=== PATIENT | male | born 1960 | race Caucasian/White ===

== ENCOUNTER 2023-08-19 14:44 | Outpatient (CLI) | payer MEDICARE, MEDICAID, SELFPAY ==
--- NOTE | 2023-08-19 14:56 | CT_ITS ---
WS: [id number] CT HEAD NONCONTRAST HISTORY: DISORIENTATION/WEAKNESS/OTHER FATIGUE TECHNIQUE: Contiguous axial imaging performed through the brain in 2.5 mm imaging. Bone and soft tiss ue windows. Sagittal and coronal reformats reviewed. All CT scans at [facility] use at least one of these dose optimization techniques: automated exposure control; mA and/or kV adjustment per pa tient size (includes targeted exams where dose is matched to clinical indication); or iterative recon struction. DLP: 948.68 mGy.cm COMPARISON: None available. No acute intracranial hemorrhage, midline shift or mass effect. Mild atrophy. 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 Ventricles: Normal size with no hydrocephalus. No intra displacement cerebellar tonsils. Clivus and pituitary gland are negative. Paranasal sinuses: Mucoperiosteal thickening in the ethmoid sinuses. Near complete opacification of t he frontal sinuses extending through the frontoethmoid recesses. Mastoid air cells: Well pneumatized. Calvarium and scalp: Skull is intact with no soft tissue edema or swelling. CT/CT head wo con* [id number] IMPRESSION: 1. No acute intracranial hemorrhage or edema. 2. Bilateral prior infarcts in the diaz radiata.
== END 2023-08-19 14:45 | disposition home or self-care (01) ==
PROVIDERS: PCP Nurse Practitioner Family; Visit Provider Nurse Practitioner Family
DX: R41.0 Disorientation, unspecified (principal); R53.1 Weakness; R53.83 Other fatigue; Z86.73 Personal history of transient ischemic attack (TIA), and cerebral infarction without residual deficits; J34.89 Other specified disorders of nose and nasal sinuses
CPT/HCPCS: 70450

== ENCOUNTER 2024-11-26 12:15 | Emergency (ER) | payer MEDICARE, MEDICAID, SELFPAY ==
--- NOTE | 2024-11-26 12:17 | XRR_ITS ---
PROCEDURE INFORMATION: Exam: XR Chest Exam date and time: 11/26/2024 12:46 PM Age: 64 years old Clinical indication: Other: AMS; Additional info: Confusion TECHNIQUE: Imaging protocol: Radiologic exam of the chest. Views: 1 view. COMPARISON: No relevant prior studies available. FINDINGS: Lungs: Unremarkable. No consolidation. Pleural spaces: Unremarkable. No pleural effusion. No pneumothorax. Heart/Mediastinum: Unremarkable. No cardiomegaly. Bones/joints: Unremarkable. XR/XR chest 1V portable [id number] IMPRESSION: No acute findings.
--- NOTE | 2024-11-26 12:18 | W.ED.GENADLT ---
HPI - General Adult General: Chief complaint: Altered Mental Status Stated complaint: AMS Time Seen by Provider: 11/26/24 12:17 Source: patient and EMS Mode of arrival: EMS Limitations: altered mental status History of Present Illness: 64-year-old male has a history of dementia he is here with EMS as patient has been wandering off and was found by police who called EMS who brought him here. Patient here is able to tell me name where he lives but is confused to the year he denies any pain or fever or recent illness. He is ambulatory. Associated symptoms: Reports confusion Related Data Home Medications ?Medication ?Instructions ?Recorded ?Confirmed baclofen 20 mg tablet 20 mg PO TID 11/26/24 11/26/24 cetirizine 10 mg tablet 10 mg PO DAILY PRN seasonal 11/26/24 11/26/24 allergies dulaglutide 3 mg/0.5 mL 3 mg SUBCUT Q7D 11/26/24 11/26/24 subcutaneous pen injector (Trulicity) insulin glargine 100 unit/mL (3 See Rx Instructions .Route .COMPLEX 11/26/24 11/26/24 mL) subcutaneous pen (Lantus Solostar U-100 Insulin) naproxen 500 mg tablet 500 mg PO BID 11/26/24 11/26/24 quetiapine 25 mg tablet 25 mg PO DAILY 11/26/24 11/26/24 simvastatin 20 mg tablet 20 mg PO QPM 11/26/24 11/26/24 Allergies Allergy/AdvReac Type Severity Reaction Status Date / Time No Known Allergies Allergy Verified 11/26/24 12:25 Review of Systems Neuro: Reports: confusion Physical Exam Const: COMMON NORMALS: no acute distress and healthy appearing HENMT: COMMON NORMALS: normocephalic and atraumatic HEAD & SCALP: normocephalic and atraumatic Eye: COMMON NORMALS: Equal, round and reactive pupils present and EOMs intact bilaterally PUPIL: Yes Equal, round and reactive pupils present Neck/C-Spine: COMMON NORMALS: full ROM and supple Chest: COMMONS NORMALS: normal inspection of the chest and normal palpation of entire chest wall Resp: COMMON NORMALS: normal respiratory effort, No retractions, No use of accessory muscles and clear to auscultation bilaterally AUSCULTATION: clear to auscultation bilaterally Cardio: COMMON NORMALS: regular rate, regular rhythm and No murmurs present (Cardio) RATE: regular rate RHYTHM: regular rhythm GI: COMMON NORMALS: Normal to inspection, nondistended, normoactive bowel sounds present, Soft to palpation, non-tender and no masses PALPATION: Yes Soft to palpation Extremity: COMMON NORMALS: normal to inspection and full ROM Neuro: COMMON NORMALS: moves all extremities and no focal motor deficits SPEECH: speech normal GAIT: Yes Normal gait present MOTOR EXAM: 5/5 motor strength present throughout Psych: COMMON NORMALS: mental status grossly normal, Normal thought process present and cooperative THOUGHT PROCESS: Normal thought process present Skin: COMMON NORMALS: no rashes or lesions noted and no wounds GENERAL SKIN EXAM: no rashes or lesions noted Course Vital Signs: Vital signs: Vital Signs Temperature 98.1 F 11/26/24 12:21 Pulse Rate 85 11/26/24 13:19 Respiratory Rate 17 11/26/24 12:21 Blood Pressure 176/93 11/26/24 13:19 Pulse Oximetry 96 11/26/24 13:19 Oxygen Delivery Me thod Room Air 11/26/24 13:19 MDM - General Adult Medical Decision Making Patient found her after found wandering with some slight confusion. He has no signs of stroke or meningitis head CT here is negative. He has known dementia is at his baseline here did speak to his son who is to come pick him up chest x-ray was interpreted by me and was normal he stable for discharge follow-up PCP return if worsening. Medical Records I reviewed the patient's medical records. Lab Data I reviewed the patient's lab results. 11/26/24 12:54 11/26/24 12:54 Radiology Impressions Chest X-Ray 11/26/24 12:17 IMPRESSION: No acute findings. Laboratory Results WBC 7.64 10^3/uL (3.29-11.43) 11/26/24 12:54 RBC 4.94 10^6/uL (3.85-5.65) 11/26/24 12:54 Hgb 14.50 g/dL (11.27-16.99) 11/26/24 12:54 Hct 43.8 % (37-53) 11/26/24 12:54 MCV 88.7 fl (82-101) 11/26/24 12:54 MCH 29.4 pg (27-33) 11/26/24 12:54 MCHC 33.1 g/dL (30-55) 11/26/24 12:54 RDW 13.0 % (12.1-15.1) 11/26/24 12:54 Plt Count 177 10^3/cmm (157-399) 11/26/24 12:54 MPV 10.2 fL (7.4-10.4) 11/26/24 12:54 Neut % (Auto) 80.1 % 11/26/24 12:54 Lymph % (Auto) 14.1 % 11/26/24 12:54 Esmeralda % (Auto) 4.2 % 11/26/24 12:54 Eos % (Auto) 0.8 % 11/26/24 12:54 Baso % (Auto) 0.4 % 11/26/24 12:54 Neut # (Auto) 6.12 10^3/uL (1.8-7.7) 11/26/24 12:54 Lymph # (Auto) 1.1 10^3/uL (0.8-4.8) 11/26/24 12:54 Esmeralda # (Auto) 0.3 10^3/uL (0.2-0.9) 11/26/24 12:54 Eos # (Auto) 0.1 10^3/uL (0.0-0.8) 11/26/24 12:54 Baso # (Auto) 0.0 10^3/uL (0.0-0.1) 11/26/24 12:54 Nucleated RBC % (auto) 0 % 11/26/24 12:54 Nucleated RBCs # 0.0 /100WBC 11/26/24 12:54 Sodium 141 mmol/L (136-145) 11/26/24 12:54 Potassium 3.9 mmol/L (3.5-5.1) 11/26/24 12:54 Chloride 105 mmol/L (98-107) 11/26/24 12:54 Carbon Dioxide 24 mmol/L (22-29) 11/26/24 12:54 Anion Gap 15.9 (5-19) 11/26/24 12:54 BUN 17 mg/dL (8-23) 11/26/24 12:54 Creatinine 1.0 mg/dL (0.7-1.2) 11/26/24 12:54 GFR Calculation 75.2 mL/min (90-130) L 11/26/24 12:54 Glucose 263 mg/dL (65-115) H 11/26/24 12:54 Calculated Osmolality 303 mOsm/kg (285-295) H 11/26/24 12:54 Calcium 9.2 mg/dL (8.5-10.5) 11/26/24 12:54 Total Bilirubin 0.6 mg/dL (0.15-1.2) 11/26/24 12:54 AST 19 U/L (0-40) 11/26/24 12:54 ALT 16 U/L (0-41) 11/26/24 12:54 Alkaline Phosphatase 83 U/L (40-130) 11/26/24 12:54 Total Protein 6.9 g/dL (6.6-8.7) 11/26/24 12:54 Albumin 4.5 g/dL (3.5-5.2) 11/26/24 12:54 Globulin 2.4 g/dL (1.3-4.6) 11/26/24 12:54 Urine Color Yellow (Yellow) 11/26/24 12:47 Urine Appearance Clear (CLEAR) 11/26/24 12:47 Urine pH 5.0 (5-7) 11/26/24 12:47 Ur Specific [place] 1.021 (1.005-1.030) 11/26/24 12:47 Urine Protein Negative (Negative) 11/26/24 12:47 Urine Glucose (UA) 1+ (Normal) H 11/26/24 12:47 Urine Ketones Trace (Negative) 11/26/24 12:47 Urine Blood Negative (Negative) 11/26/24 12:47 Urine Nitrate Negative (Negative) 11/26/24 12:47 Urine Bilirubin Negative (Negative) 11/26/24 12:47 Urine Urobilinogen 1.0 mg/dL (Negative) 11/26/24 12:47 Ur Leukocyte Esterase Negative (Negative) 11/26/24 12:47 Amorphous Sediment Not Reportable 11/26/24 12:47 All radiology interpretation(s) finalized by discharge EKG Data EKG 1: I personally reviewed and interpreted this EKG as follows: EKG interpretation date: 11/26/24 EKG interpretation time: 12:29 Interpretation: nsr hr [address] elevation qrs 85 qtc 415 Computer generated interpretation: Chest X-Ray 11/26/24 12:17 IMPRESSION: No acute findings. Discharge Plan Discharge Patient Disposition: Home Clinical Impression: Dementia, Altered mental status Condition: Stable Prescriptions: No Action quetiapine 25 mg tablet 25 mg PO DAILY cetirizine 10 mg tablet 10 mg PO DAILY PRN (Reason: seasonal allergies) baclofen 20 mg tablet 20 mg PO TID simvastatin 20 mg tablet 20 mg PO QPM naproxen 500 mg tablet 500 mg PO BID insulin glargine [Lantus Solostar U-100 Insulin] 100 unit/mL (3 mL) insulin pen See Rx Instructions .ROUTE .COMPLEX Rx Instructions: INJECT 10 UNITS SUBCUTANEOUSLY AT BEDTIME FOR 7 DAYS, THEN INCREASE TO 20 UNITS AT BEDTIME THEREAFTER. 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
[2024-11-26 12:21] VITALS: BP 184/84; PULSE 82; RESP 17; TEMP 36.7; O2SAT 96; BMI 20.3
--- NOTE | 2024-11-26 12:29 | ECG_ITS ---
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
[2024-11-26 12:57] LABS: Add Urine Microscopic? NO
[2024-11-26 13:00] LABS: Glucose Urine UA 1+ (Normal); Nitrate Urine Negative (Negative); Specific Gravity, Urine 1.021 (1.005-1.030)
[2024-11-26 13:07] LABS: Charge for UA Resulting for Rev
[2024-11-26 13:12] LABS: Hematocrit 43.8 % (37-53); Hemoglobin 14.50 g/dL (11.27-16.99); Mean Corpuscular HGB Conc 33.1 g/dL (30-55); Mean Corpuscular Hemoglobin 29.4 pg (27-33); Mean Corpuscular Volume 88.7 fl (82-101); Nucleated Red Blood Cells % 0 %; Platelet Count 177 10^3/cmm (157-399); Red Blood Count 4.94 10^6/uL (3.85-5.65); White Blood Count 7.64 10^3/uL (3.29-11.43)
[2024-11-26 13:19] VITALS: BP 176/93; PULSE 85; O2SAT 96
[2024-11-26 13:29] LABS: Alanine Aminotransferase 16 U/L (0-41); Albumin Level 4.5 g/dL (3.5-5.2); Alkaline Phosphatase 83 U/L (40-130); Anion Gap 15.9 (5-19); Aspartate Amino Transferase 19 U/L (0-40); Blood Urea Nitrogen 17 mg/dL (8-23); Calcium 9.2 mg/dL (8.5-10.5); Carbon Dioxide 24 mmol/L (22-29); Chloride 105 mmol/L (98-107); Creatinine Clr Calc Pharmacy 71.2061; Globulin 2.4 g/dL (1.3-4.6); Glucose 263 mg/dL (65-115); Osmolality Calculated 303 mOsm/kg (285-295); Potassium 3.9 mmol/L (3.5-5.1); Sodium 141 mmol/L (136-145); Total Protein 6.9 g/dL (6.6-8.7)
--- NOTE | 2024-11-26 13:43 | PC.PHAR ---
Verified medications with Luis Jensen. Pt has several medications that have not been filled in more than 3 months. Donepezil 5mg, Memantine 5mg, and Farxiga 10mg
[2024-11-26] MEDS: haloperidol inj 5 mg/mL INJ 1 mL 10 MG (15:52)
--- NOTE | 2024-11-26 15:54 | PC.NURSE ---
THIS NURSE WALKED BY PATIENT ROOM AND FIORELLA SCHILLING, STOPPED THIS NURSE. ENTERED ROOM AND PATIENT HAD CLENCHED FISTS AND TIGHTLY HOLDING BP WIRES. PATIENT MUMBLING AT STAFF. PATIENT BECOMES AGGRESSIVE AND BEGINS TO FIGHT WITH STAFF. CODE 10 CALLED. MULTIPLE SECURITY OFFERS PRESENTS, WP KEEPES PRESENT, AND NILES RIVERA SUP. PROVIDER AT ROOM ORDERED HALDOL TO PATIENT. UPON PLACING PATIENT BACK IN ROOM ARNDT FOUND IN PATIENT SOCK. TOTAL $934.37 COUNTED WITH SECURITY, RA, AND PLACED IN VALUABLES ENVELOPE.
== END 2024-11-26 16:09 | disposition home or self-care (01) ==
PROVIDERS: Emergency Provider Emergency Medicine; PCP Nurse Practitioner Family
DX: F03.90 Unspecified dementia, unspecified severity, without behavioral disturbance, psychotic disturbance, mood disturbance, and anxiety (principal); R41.82 Altered mental status, unspecified; Z79.4 Long term (current) use of insulin; Z79.85 Long-term (current) use of injectable non-insulin antidiabetic drugs
CPT/HCPCS: 36415; 71045; 80053; 81003; 85025; 93005; 99285; J1630